=== PATIENT | male | born 1970 | race Two or more races ===

== ENCOUNTER → 2020-05-12 08:00 | Outpatient (CLI) | payer OTHER ==
[~2020-05-12] VITALS: Ht 180.3 cm; Wt 99.8 kg
[~2020-05-12 08:00] MED LIST: BENICAR20 MG PO; FENOFIBRATE50 MG PO
== END | disposition home or self-care (01) ==
LOC: LAB 08:00 → SURH 05-18 07:00 → EDSTATUS 05-18 11:15 → SURH 05-18 11:15
PROVIDERS: ATTEND Orthopaedic Surgery Orthopaedic Surgery of the Spine
DX: M50.023 Cervical disc disorder at C6-C7 level with myelopathy (principal); Z20.828 Contact with and (suspected) exposure to other viral communicable diseases; Z03.818 Encounter for observation for suspected exposure to other biological agents ruled out

== ENCOUNTER 2020-07-13 10:15 | Inpatient (IN) | payer OTHER ==
[~2020-07-13] VITALS: Ht 180.3 cm; Wt 99.8 kg
[2020-07-20] MEDS ORDERED: COLACE100 MG PO (07:34)
[2020-07-20] MEDS ORDERED: CLONAZEPAM1 MG PO (07:35)
[2020-07-20] MEDS ORDERED: PERCOCET 5-3251 EACH PO (07:35)
== END 2020-07-21 16:32 | disposition home or self-care (01) | DRG 472 ==
LOC: O/R 07-20 05:33 → SURG 07-20 05:33 → OB/GYN 07-20 07:00 → SURG 07-20 11:37
PROVIDERS: ADMIT Orthopaedic Surgery Orthopaedic Surgery of the Spine; ATTEND Orthopaedic Surgery Orthopaedic Surgery of the Spine
PROC: 0RT30ZZ Resection of Cervical Vertebral Disc, Open Approach (ICD-10-PCS; 2020-07-20)
PROC: 3E0U0GB Introduction of Recombinant Bone Morphogenetic Protein into Joints, Open Approach (ICD-10-PCS; 2020-07-20)
PROC: 0RG20A0 Fusion of 2 or more Cervical Vertebral Joints with Interbody Fusion Device, Anterior Approach, Anterior Column, Open Approach (ICD-10-PCS; principal; 2020-07-20 07:00)
DX: M48.02 Spinal stenosis, cervical region (principal); M50.023 Cervical disc disorder at C6-C7 level with myelopathy